=== PATIENT | male | born 2000 | race African-American/Black ===

== ENCOUNTER 2021-05-15 11:12 | Emergency (ER) | payer BC, SELFPAY ==
[2021-05-15] MEDS ORDERED: Dexamethasone 10 MG/ML VIAL ONE (11:42)
[2021-05-15] MEDS ORDERED: Magnesium 2 GM/50 ML BAG (IN WATER) ONE (11:42)
[2021-05-15] MEDS ORDERED: Ondansetron PF 4 MG/2 ML Vial ONE (12:03)
[2021-05-15 12:47] LABS: SARS-CoV-2 NAA Rapid Test Not Detected (NotDetected)
[2021-05-15] MEDS ORDERED: Albuterol Sulfate 2.5 mg/3 ml Neb ONE (13:22)
== END 2021-05-15 14:21 | disposition home or self-care (01) ==
LOC: CSHERS 11:12
DX: J45.901 Unspecified asthma with (acute) exacerbation (principal); Z20.822 Contact with and (suspected) exposure to COVID-19; Z87.891 Personal history of nicotine dependence
CPT/HCPCS: 71045; 96374; 96375; J1100; J2405; J3475; J7611; J7620; U0002

== ENCOUNTER 2023-02-27 12:11 | Emergency (ER) | payer BC ==
[2023-02-27] MEDS ORDERED: Dexamethasone 4 MG TAB ONE (13:26)
[2023-02-27] MEDS ORDERED: Ibuprofen 200 MG TAB ONE (13:26)
[2023-02-27 13:42] LABS: SARS-CoV-2 NAA Rapid Test Not Detected (NotDetected)
== END 2023-02-27 14:30 | disposition home or self-care (01) ==
LOC: CSHERS 12:11
DX: B34.9 Viral infection, unspecified (principal); J45.909 Unspecified asthma, uncomplicated; Z20.822 Contact with and (suspected) exposure to COVID-19
CPT/HCPCS: 99283; J8540